=== PATIENT | female | born 1965 | race African-American/Black ===

== ENCOUNTER 2017-01-07 13:51 | Inpatient (IN) | payer MEDICARE, OTHER ==
--- NOTE | ~2017-01-07 | DS ---
Discharge Summary [facility] [address] [place]. [address] NAME: CELESTINE ARREGUIN : 69 STATUS : DIS IN PAT#: [id number] AGE: 51 ADM/REG DATE : 01/07/17 MR#: [id number] REPORT SERV DATE: 01/24/17 DICTATED BY: ELLA SHABAZZ DATE: 01/23/17 REPORT STATUS : Draft TRANSCRIBED BY: NAFISA DATE: 01/23/17 Data Collection from hospitalization DISCHARGE DIAGNOSES: 1. History of right knee incision and drainage/patella tendon revision and repair. 2. End-stage renal disease. 3. Type 2 diabetes mellitus. 4. Hypertension. 5. Peripheral vascular disease. 6. Hyperlipidemia. CONSULTATION: JENNIFER Montoya. Dr. Alfred Moore. PROCEDURES PERFORMED: Right knee irrigation and debridement with excision of synovial cutaneous fistula and revision repair of patellar tendon rupture, 01/07/2017. DISCHARGE MEDICATIONS: Cardizem LA 360 mg every morning, Colace 100 mg twice a day, Pepcid 20 mg at bedtime, ferrous sulfate 300 mg with breakfast and supper, Levemir 35 units subcutaneously every day at bedtime and 45 units subcutaneously every morning, Zyvox 600 mg twice a day, Lopressor 50 mg twice a day, Zocor 40 mg at bedtime, Renvela 3200 mg three times a day with meals, Coumadin as per sliding scale as instructed, Levemir 45 units subcutaneously daily and 35 units subcutaneously at bedtime, Hodges one tablet every four hours as needed, lactulose 20 mg daily as needed for constipation. CONDITION AT DISCHARGE: Stable. DISPOSITION: The patient was discharged to [facility] on a renal diet with activities as instructed. HOSPITAL COURSE: This is a 51-year-old female, who has brittle diabetes and peripheral arterial disease as well as chronic renal disease. She is status post left below-knee amputation, right mid foot amputation, and she fell approximately six weeks prior to this admission, where she sustained an acute closed patellar tendon rupture where she avulsed the patellar tendon off the inferior pole of her patella. She came to a repair and was extended in her knee immobilizer and was doing well until about three weeks prior to this admission when she said she had a fall injuring the right knee. At her postop visit, she had the beata removed and the wound looked good, but she said she began having a small abrasion along the superior aspect of her incision for which she was assessed and sent to the wound care facility on Friday prior to this admission. She underwent debridement and wound care and began having copious amounts of clear yellow fluid drained from the area. I saw her in the office on the day prior to this admission and she was felt to have communication with the joint, but no evidence of gross infection. Treatment options were discussed and it was elected to proceed with surgical intervention. She was admitted to the hospital at this time for further evaluation and treatment. Upon admission, she was taken to the operating room, where she underwent the above-mentioned procedure. She tolerated this well and there were no complications. On postop day 1, dialysis therapy was performed. She did complain of pain, but otherwise was doing well. An Discharge Summary [address] [address] NAME: CELESTINE ARREGUIN : 69 STATUS : DIS IN PAT#: [id number] AGE: 51 ADM/REG DATE : 01/07/17 MR#: [id number] REPORT SERV DATE: 01/24/17 DICTATED BY: ELLA SHABAZZ DATE: 01/23/17 REPORT STATUS : Draft TRANSCRIBED BY: NAFISA DATE: 01/23/[address] Simvastatin was continued. Her diabetes was uncontrolled. Her sliding scale insulin was increased to level 2. Levemir was continued. She was seen by Hetal Alfaro. Creatinine level was 11.90. She does have end-stage renal disease. She was in no acute distress. She had good pain control at this time. She had no nausea or vomiting. On 01/10/2017, she was seen by Dr. Alfred Moore. There had been positive operative cultures for sparse growth of Staph epidermidis. The patient's antibiotic was changed to Zyvox. Ancef was discontinued. She was transfused one unit of packed red blood cells during dialysis. She did complain of pain in the right knee. Discharge planning was performed. On 01/11/2017, she had no new symptoms. She was afebrile. Dr. Moore had recommended seven days of Zyvox. She seemed to be feeling better. Creatinine level was 13. She had mild edema. On the 2nd, she was tolerating the Zyvox. Level 2 sliding scale insulin and Levemir were continued as well as Toprol, Cardizem, and simvastatin. INR level was 1.3. Discharge planning continued. Her pain was controlled. She did have some constipation. Encouraged her to participate with Physical Therapy as tolerated. On 01/14/2017, she had no new complaints. Discharge instructions were given. Due to her improved and stable condition, she was discharged to [facility] with the above-stated instructions. Information collected by: Leticia Maravilla I submit the above information as my discharge summary. TG/MODL Ella Shabazz M.D. / [id number] CC: Ella Shabazz M.D. Jing Ruano M.D. [facility] JENNIFER Montoya
--- NOTE | ~2017-01-07 | OP ---
Record Of Operation [facility] [address] [place]. [address] NAME: CELESTINE ARREGUIN : 69 STATUS : ADM IN PAT#: [id number] AGE: 51 ADM/REG DATE : 01/07/17 MR#: [id number] REPORT SERV DATE: 01/08/17 DICTATED BY: ELLA SHABAZZ DATE: 01/07/17 REPORT STATUS : Draft TRANSCRIBED BY: MODL DATE: 01/07/17 DATE OF PROCEDURE: 01/07/2017 PREOPERATIVE DIAGNOSIS: Left knee synovial cutaneous fistula, status post patellar tendon repair, with a fall 3 weeks ago. POSTOPERATIVE DIAGNOSIS: Left knee synovial cutaneous fistula with failure of lateral aspect of the patellar tendon repair post traumatically. PROCEDURE PERFORMED: Right knee irrigation and debridement with excision of synovial cutaneous fistula and revision repair of patellar tendon rupture. SURGEON: Ella Shabazz M.D. [place]: Ghada Leija. ANESTHESIA: General. HISTORY AND INDICATIONS: Ms. Arreguin is a 51-year-old woman with brittle diabetes, peripheral arterial disease, and chronic renal disease, who is status post left below-knee amputation, right midfoot amputation, and fell approximately 6 weeks ago where she sustained an acute closed patellar tendon rupture where she avulsed the patellar tendon off the inferior pole of her patella. She came to a repair and was extended in her knee immobilizer, doing well until about 3 weeks ago in which she states she had a fall injuring her right knee. Her postop visit had staple removal if the wound looked good, but she says she began having a small abrasion along the superior aspect of her incision for which she was assessed and sent to Wound Care Friday, and with wound care debridement, she began having copious amounts of clear yellow fluid drain from the area. I saw her at the office yesterday afternoon and felt to have communication with the joint, but no evidence of gross infection. She was brought to the operating room for at least irrigation and debridement with excision of her synovial cutaneous fistula and assessment of her patellar tendon repair. She did have an active straight leg raise with just a 10-degree extension lag. PROCEDURE IN DETAIL: The patient was clearly identified, and after obtaining informed consent, was brought to the operating room at [facility] where she was induced under general anesthesia and her right lower extremity prepped and draped in the usual manner. With this concluded, an approximately 8 x 8 mm hole is included in the approach where after with the elevation and exsanguination the tourniquet was elevated to 350 mmHg and successfully tested and incising through her previously utilized incision but also fish- mouthing around the draining wound is noted to communicate with the subcutaneous tissues clearly. This was all carefully performed and the fascial planes were then elevated to expose the patella whereupon it is noted that the fluid is coming from a failure of the medial aspect of the patellar tendon repair as the sutures were pulled and loosened consistent with traumatic injury and knee flexion. Subsequently, the tissues were all carefully irrigated and debrided. There was no evidence of pus, infection, or any infectious gangrenous tissues. Regardless, the area was pulsatile lavaged and the joints [facility] Of [place] [address] [facility] [place]. [address] NAME: CELESTINE ARREGUIN : 69 STATUS : ADM IN PAT#: [id number] AGE: 51 ADM/REG DATE : 01/07/17 MR#: [id number] REPORT SERV DATE: 01/08/17 DICTATED BY: ELLA SHABAZZ DATE: 01/07/17 REPORT STATUS : Draft TRANSCRIBED BY: NAFISA DATE: 01/07/17 inspected. With this concluded, the previously utilized drill holes through the patella are reassessed, Vicryl suture loops were placed for later use, and subsequently the FiberWire was replaced along her patellar tendon, and subsequently with this all being done, more copious irrigation was performed. The sutures were then carefully passed through the patella and the old sutures were all removed from both the patellar tendon as well as through the patellar and superior patellar area. The area then was copiously irrigated. With a concern for infection, tobramycin stimulant beads were then carefully mixed and placed in the depths of the joint whereupon the sutures were then all tied, 1 PDS suture was placed along the retinacular tear medially that wraps more medially in the retinaculum nicely closing the joint and a drain was placed prior to this closure. Subsequently, the knee is held extended, the repair is redone, and the joints then carefully cleansed and then closed in layers. The patient was cleansed and dressed with bulky dressing. A knee immobilizer was applied. The patient was allowed to awaken and was transferred to the recovery in stable condition having tolerated the procedure well. ESTIMATED BLOOD LOSS: 100. FLUIDS: 400. TOURNIQUET TIME: 2 minutes (of note, the patient had tourniquet effect after just a few minutes of the tourniquet being elevated; therefore it was deflated. Hemostasis was obtained which was no different and so the case proceeded). PATHOLOGY: Sent specimen. MICROBIOLOGY: Sent specimen. COMPLICATIONS: None. SPONGE AND NEEDLE COUNTS: Reportedly correct. ANTIBIOTICS: Administered appropriately preoperatively and currently will be discontinued within 23 hours depending upon the Gram stain results and other culture results, and this may continue. WAGNER/LIZL Ella Shabazz M.D. / [id number] CC: Jing Partida M.D.
[~2017-01-07 13:51] MED LIST: 8 HOUR650 MG PO; ANTIBIOTIC; AUG500 PO; BACDS PO; CARDCD120; CARDCD360 PO; CARDIZEM LA180 MG PO; CARDIZEM LA360 MG PO; COREG25 PO; COREG6 PO; COZ50 PO; COZAAR100 MG PO; DAKINS SOLUTION TOP; DILTIAZEM ER90 MG PO; DSS PO; ENDOCET1 TA3 PO; EPOGEN10000 MG/M; EPOGEN10000 MG/M IV; FERRLECIT; FERRLECIT IV; FOLIC PO; GLUCOTRO10 PO; GLUCXL10 PO; GOODY'S EX-STR1 EAC1 PO; INSNOV7030 SC; INSNOVR; LEVEMIR SC; LISINOPRIL40 MG PO; LOP50 PO; MULTIVIT/MIN PO; MYCOSCROI TOP; NORCO1 TA1 PO; NOVOLOG SC; PACERONE400 MG PO; PRIN10 PO; PRO STAT SUGAR FREE PO; RENA-VITE PO; RENAGEL800 PO; RENVELA800 MG PO; RYTHMOL150 MG PO; RYTHMOL300 MG PO; SENSIPAR30 M1 PO; VITAMIN C100 MG PO; VITC500 PO; ZOCOR40 PO; [UNRECOGNIZED DRUG - OTHER] TOP
[2017-01-07 14:45] LABS: HEMATOCRIT 30.4 % (36.0-48.0)
[2017-01-07 15:01] LABS: BUN (BLOOD UREA NITROGEN) 45 MG/DL (6-23); CALCIUM, SERUM 8.7 MG/DL (8.5-10.4); CHLORIDE, SERUM 96 MMOL/L (96-112); CO2 (CARBON DIOXIDE) 28 MMOL/L (24-34); GFR AFRICAN AMERICAN 4 ML/MIN (>=60); GFR NON AFRICAN AMERICAN 4 ML/MIN (>=60); GLUCOSE, SERUM 204 MG/DL (60-99); POTASSIUM, SERUM 4.7 MMOL/L (3.5-5.3); SODIUM, SERUM 138 MMOL/L (135-148)
[2017-01-07 23:05] LABS: INTERNATIONAL NORMAL RATI 1.3 UNITS (-); PROTIME (NOT ORD) 15.7 SEC (12.0-14.5)
[2017-01-08 07:53] LABS: HEMATOCRIT 26.9 % (36.0-48.0)
[2017-01-08 07:57] LABS: INTERNATIONAL NORMAL RATI 1.2 UNITS (-); PROTIME (NOT ORD) 15.2 SEC (12.0-14.5)
[2017-01-08 08:02] LABS: BUN (BLOOD UREA NITROGEN) 53 MG/DL (6-23); CALCIUM, SERUM 8.1 MG/DL (8.5-10.4); CHLORIDE, SERUM 96 MMOL/L (96-112); CO2 (CARBON DIOXIDE) 22 MMOL/L (24-34); GFR AFRICAN AMERICAN 4 ML/MIN (>=60); GFR NON AFRICAN AMERICAN 3 ML/MIN (>=60); GLUCOSE, SERUM 277 MG/DL (60-99); POTASSIUM, SERUM 5.9 MMOL/L (3.5-5.3); SODIUM, SERUM 137 MMOL/L (135-148)
[2017-01-08 18:08] LABS: ALBUMIN 3.6 G/DL (3.5-5.0)
[2017-01-08 18:32] LABS: BASOPHILS 0.4 %; BASOPHILS ABSOLUTE 0.03 10/3/uL (0.0-0.16); EOSINOPHILS 0.9 %; EOSINOPHILS ABSOLUTE 0.07 10/3/uL (0.0-0.53); IMMATURE GRANULOCYTES 0.2 %; IMMATURE GRANULOCYTES ABSOLUTE 0.02 10/3/uL (0.0-0.11); LYMPHOCYTES 15.2 %; LYMPHOCYTES ABSOLUTE 1.24 10/3/uL (0.67-4.30); MEAN CORPUS HGB CONC 31.7 g/dL (32.0-36.0); MEAN CORPUSCULAR HEMOGLOB 28.5 pg (26.0-34.0); MEAN PLATELET VOLUME 11.3 fL (9.2-13.0); MONOCYTES 8.1 %; MONOCYTES ABSOLUTE 0.66 10/3/uL (0.21-1.20); NEUTROPHILS 75.2 %; NEUTROPHILS ABSOLUTE 6.16 10/3/uL (2.02-8.40); RBC DISTRIBUTION WIDTH 19.1 % (12.0-16.0); RED CELL COUNT 3.09 10/6/uL (4.0-5.6)
[2017-01-08 18:35] LABS: WHITE BLOOD CELLS 8.2 10/3/uL (4.5-10.5)
[2017-01-08 18:36] LABS: PLATELET COUNT 261 10/3/uL (150-400)
[2017-01-08 18:37] LABS: MANUAL DIFF NO %
[2017-01-09 10:11] LABS: BASOPHILS 0.2 %; BASOPHILS ABSOLUTE 0.02 10/3/uL (0.0-0.16); EOSINOPHILS 2.6 %; EOSINOPHILS ABSOLUTE 0.22 10/3/uL (0.0-0.53); HEMOGLOBIN 7.8 g/dL (12.0-16.0); IMMATURE GRANULOCYTES 0.1 %; IMMATURE GRANULOCYTES ABSOLUTE 0.01 10/3/uL (0.0-0.11); LYMPHOCYTES 12.7 %; LYMPHOCYTES ABSOLUTE 1.07 10/3/uL (0.67-4.30); MEAN CORPUS HGB CONC 33.2 g/dL (32.0-36.0); MEAN CORPUSCULAR HEMOGLOB 29.5 pg (26.0-34.0); MEAN PLATELET VOLUME 10.2 fL (9.2-13.0); MONOCYTES 7.3 %; MONOCYTES ABSOLUTE 0.62 10/3/uL (0.21-1.20); NEUTROPHILS 77.1 %; PLATELET COUNT 251 10/3/uL (150-400); RBC DISTRIBUTION WIDTH 19.4 % (12.0-16.0); RED CELL COUNT 2.64 10/6/uL (4.0-5.6); WHITE BLOOD CELLS 8.4 10/3/uL (4.5-10.5)
[2017-01-09 10:12] LABS: HEMATOCRIT 23.5 % (36.0-48.0); MANUAL DIFF NO %
[2017-01-09 10:22] LABS: INTERNATIONAL NORMAL RATI 1.3 UNITS (-); PROTIME (NOT ORD) 16.5 SEC (12.0-14.5)
[2017-01-09 10:26] LABS: ALBUMIN 3.3 G/DL (3.5-5.0); CALCIUM, SERUM 8.6 MG/DL (8.5-10.4); CHLORIDE, SERUM 97 MMOL/L (96-112); CO2 (CARBON DIOXIDE) 24 MMOL/L (24-34); SODIUM, SERUM 138 MMOL/L (135-148)
[2017-01-09 10:27] LABS: BUN (BLOOD UREA NITROGEN) 43 MG/DL (6-23); GFR AFRICAN AMERICAN 5 ML/MIN (>=60); GFR NON AFRICAN AMERICAN 4 ML/MIN (>=60); GLUCOSE, SERUM 137 MG/DL (60-99); PHOSPHORUS, SERUM 5.6 MG/DL (2.5-4.5); POTASSIUM, SERUM 4.4 MMOL/L (3.5-5.3)
[2017-01-10 13:58] LABS: BASOPHILS 0.1 %; BASOPHILS ABSOLUTE 0.01 10/3/uL (0.0-0.16); EOSINOPHILS 4.1 %; EOSINOPHILS ABSOLUTE 0.37 10/3/uL (0.0-0.53); HEMATOCRIT 23.1 % (36.0-48.0); HEMOGLOBIN 7.7 g/dL (12.0-16.0); IMMATURE GRANULOCYTES 0.1 %; IMMATURE GRANULOCYTES ABSOLUTE 0.01 10/3/uL (0.0-0.11); LYMPHOCYTES 24.9 %; LYMPHOCYTES ABSOLUTE 2.25 10/3/uL (0.67-4.30); MANUAL DIFF NO %; MEAN CORPUS HGB CONC 33.3 g/dL (32.0-36.0); MEAN CORPUSCULAR HEMOGLOB 29.3 pg (26.0-34.0); MEAN CORPUSCULAR VOLUME 87.8 fL (80-100); MEAN PLATELET VOLUME 9.7 fL (9.2-13.0); MONOCYTES 7.6 %; MONOCYTES ABSOLUTE 0.69 10/3/uL (0.21-1.20); NEUTROPHILS 63.2 %; NEUTROPHILS ABSOLUTE 5.71 10/3/uL (2.02-8.40); PLATELET COUNT 278 10/3/uL (150-400); RED CELL COUNT 2.63 10/6/uL (4.0-5.6)
[2017-01-10 14:20] LABS: ALBUMIN 3.1 G/DL (3.5-5.0); CALCIUM, SERUM 8.6 MG/DL (8.5-10.4); CHLORIDE, SERUM 98 MMOL/L (96-112); CO2 (CARBON DIOXIDE) 25 MMOL/L (24-34); PHOSPHORUS, SERUM 6.3 MG/DL (2.5-4.5); POTASSIUM, SERUM 4.3 MMOL/L (3.5-5.3); SODIUM, SERUM 140 MMOL/L (135-148)
[2017-01-10 14:21] LABS: BUN (BLOOD UREA NITROGEN) 60 MG/DL (6-23); GFR AFRICAN AMERICAN 3 ML/MIN (>=60); GFR NON AFRICAN AMERICAN 3 ML/MIN (>=60); GLUCOSE, SERUM 106 MG/DL (60-99)
[2017-01-10 18:26] LABS: INTERNATIONAL NORMAL RATI 1.3 UNITS (-)
[2017-01-11 06:41] LABS: INTERNATIONAL NORMAL RATI 1.3 UNITS (-)
[2017-01-12 06:09] LABS: INTERNATIONAL NORMAL RATI 1.3 UNITS (-); PROTIME (NOT ORD) 16.3 SEC (12.0-14.5)
[2017-01-12 06:22] LABS: ALBUMIN 3.2 G/DL (3.5-5.0); CALCIUM, SERUM 9.4 MG/DL (8.5-10.4); CHLORIDE, SERUM 101 MMOL/L (96-112); CO2 (CARBON DIOXIDE) 25 MMOL/L (24-34); PHOSPHORUS, SERUM 6.3 MG/DL (2.5-4.5); POTASSIUM, SERUM 4.6 MMOL/L (3.5-5.3); SODIUM, SERUM 140 MMOL/L (135-148)
[2017-01-12 06:23] LABS: BUN (BLOOD UREA NITROGEN) 50 MG/DL (6-23); GFR AFRICAN AMERICAN 4 ML/MIN (>=60); GFR NON AFRICAN AMERICAN 3 ML/MIN (>=60); GLUCOSE, SERUM 67 MG/DL (60-99)
[2017-01-13 09:31] LABS: BASOPHILS 0.4 %; BASOPHILS ABSOLUTE 0.02 10/3/uL (0.0-0.16); EOSINOPHILS 5.3 %; HEMATOCRIT 25.4 % (36.0-48.0); HEMOGLOBIN 8.5 g/dL (12.0-16.0); IMMATURE GRANULOCYTES 0.2 %; IMMATURE GRANULOCYTES ABSOLUTE 0.01 10/3/uL (0.0-0.11); LYMPHOCYTES 30.4 %; LYMPHOCYTES ABSOLUTE 1.71 10/3/uL (0.67-4.30); MANUAL DIFF NO %; MEAN CORPUS HGB CONC 33.5 g/dL (32.0-36.0); MEAN CORPUSCULAR HEMOGLOB 29.9 pg (26.0-34.0); MEAN CORPUSCULAR VOLUME 89.4 fL (80-100); MEAN PLATELET VOLUME 10.4 fL (9.2-13.0); MONOCYTES ABSOLUTE 0.34 10/3/uL (0.21-1.20); NEUTROPHILS 57.7 %; NEUTROPHILS ABSOLUTE 3.25 10/3/uL (2.02-8.40); PLATELET COUNT 312 10/3/uL (150-400); RBC DISTRIBUTION WIDTH 17.3 % (12.0-16.0); RED CELL COUNT 2.84 10/6/uL (4.0-5.6); WHITE BLOOD CELLS 5.6 10/3/uL (4.5-10.5)
[2017-01-13 09:40] LABS: INTERNATIONAL NORMAL RATI 1.5 UNITS (-); PROTIME (NOT ORD) 18.4 SEC (12.0-14.5)
[2017-01-13 09:41] LABS: ALBUMIN 2.9 G/DL (3.5-5.0); CALCIUM, SERUM 8.8 MG/DL (8.5-10.4); CHLORIDE, SERUM 98 MMOL/L (96-112); CO2 (CARBON DIOXIDE) 23 MMOL/L (24-34); PHOSPHORUS, SERUM 6.5 MG/DL (2.5-4.5); POTASSIUM, SERUM 4.8 MMOL/L (3.5-5.3); SODIUM, SERUM 137 MMOL/L (135-148)
[2017-01-13 09:42] LABS: BUN (BLOOD UREA NITROGEN) 58 MG/DL (6-23); GFR AFRICAN AMERICAN 3 ML/MIN (>=60); GFR NON AFRICAN AMERICAN 3 ML/MIN (>=60); GLUCOSE, SERUM 123 MG/DL (60-99)
[2017-01-14 08:43] LABS: INTERNATIONAL NORMAL RATI 1.5 UNITS (-); PROTIME (NOT ORD) 18.2 SEC (12.0-14.5)
[2017-05-09] MEDS ORDERED: PEP20 PO (18:03)
[2017-05-09] MEDS ORDERED: CARDCD360 PO (18:03)
[2017-05-09] MEDS ORDERED: NOVOLOG SC (18:04)
[2017-05-09] MEDS ORDERED: LOP50 PO (18:05)
[2017-05-09] MEDS ORDERED: REG5 PO (18:05)
[2017-05-09] MEDS ORDERED: ZOFRAN4 PO (18:06)
[2017-05-09] MEDS ORDERED: ZOCOR40 PO (18:07)
[2017-05-09] MEDS ORDERED: RENAGEL800 PO (18:07)
[2017-05-09] MEDS ORDERED: NORCO1 TA2 PO (18:08)
[2017-05-09] MEDS ORDERED: LANTUS SC (18:08)
== END 2017-01-14 17:46 | DRG 907 ==
LOC: SDC 13:51 → 4SO 20:44
PROVIDERS: Orthopaedic Surgery; Registered Nurse
DX: S76.191A Other specified injury of right quadriceps muscle, fascia and tendon, initial encounter (principal); N18.6 End stage renal disease; I13.2 Hypertensive heart and chronic kidney disease with heart failure and with stage 5 chronic kidney disease, or end stage renal disease; W19.XXXA Unspecified fall, initial encounter; E11.22 Type 2 diabetes mellitus with diabetic chronic kidney disease; D62 Acute posthemorrhagic anemia; M65.861 Other synovitis and tenosynovitis, right lower leg; I50.9 Heart failure, unspecified; Z99.2 Dependence on renal dialysis; Z89.512 Acquired absence of left leg below knee; Z89.431 Acquired absence of right foot; S86.812A Strain of other muscle(s) and tendon(s) at lower leg level, left leg, initial encounter; S83.8X1A Sprain of other specified parts of right knee, initial encounter; Z91.81 History of falling; E78.5 Hyperlipidemia, unspecified; E11.9 Type 2 diabetes mellitus without complications; I73.89 Other specified peripheral vascular diseases; K21.9 Gastro-esophageal reflux disease without esophagitis; S89.81XA Other specified injuries of right lower leg, initial encounter; D63.1 Anemia in chronic kidney disease; B95.7 Other staphylococcus as the cause of diseases classified elsewhere
CPT/HCPCS: 36415; 73560-RT; 74000; 80048; 80069; 82962; 83735; 85014; 85018; 85025; 85610; 86850; 86900; 86901; 86920; 87015; 87070; 87075; 87077; 87102; 87116; 87186; 87205; 93005; 97116-GP; 97161-GP; 97164-GP; 97166-GO; 97530-GP; 97535-GO; A9270-GY; C1713; G0257; G8978-CL-GP; G8979-CK-GP; G8987-CK-GO; G8988-CJ-GO; J0690; J1170; J2250; J2370; J2405; J2550; J3010; J3260; P9016; P9047

== ENCOUNTER 2017-01-29 22:14 | Observation (INO) | payer MEDICARE, OTHER ==
--- NOTE | ~2017-01-29 | EGD ---
EGD REPORT [facility] [address] [place]. [address] NAME: CELESTINE ARREGUIN : 69 STATUS : ADM Hetal PAT#: [id number] AGE: 51 ADM/REG DATE : 01/30/17 MR#: [id number] REPORT SERV DATE: 01/31/17 DICTATED BY: STONE YEUNG DATE: 01/31/17 REPORT STATUS : Draft TRANSCRIBED BY: [facility] DATE: 01/31/17 Endoscopy Center Patient Name: Celestine Arreguin Date of : 1965 Attending MD: STONE YEUNG MD Procedure Date No Time: 01/31/2017 Procedure: Upper GI endoscopy Indications: Hematemesis Referring MD: SAM DORMAN Medicines: Monitored Anesthesia Care Complications: No immediate complications. Estimated blood loss: None. Procedure: Pre-Anesthesia Assessment: - ASA Grade Assessment: IV - A patient with severe systemic disease that is a constant threat to life. After obtaining informed consent, the endoscope was passed under direct vision. Throughout the procedure, the patient's blood pressure, pulse, and oxygen saturations were monitored continuously. The GIF [id number] was introduced through the mouth, and advanced to the second part of duodenum. The upper GI endoscopy was accomplished without difficulty. The patient tolerated the procedure well. Findings: A single small erosion was found at the gastroesophageal junction that appeared to be a healing Gloria Hussein tear. No gross lesions were noted in the entire examined stomach. No gross lesions were noted in the entire examined duodenum. Impression: - Small Gloria Hussein tear at the gastroesophageal junction. - No gross lesions in the stomach. - No gross lesions in duodenum. - No suggestion of bleeding was seen on this examination. Rebleeding is unlikely. Recommendation: - Soft diet. - Use Protonix (pantoprazole) 40 mg PO daily for 4 weeks. - OK to DC to home Procedure Code(s): --- Professional --- 33624, Esophagogastroduodenoscopy, flexible, transoral; diagnostic, including collection of specimen(s) by brushing or washing, when performed (separate procedure) EGD REPORT [address] [place]. [address] NAME: CELESTINE ARREGUIN : [birth year] STATUS : ADM Hetal PAT#: [id number] AGE: 51 ADM/REG DATE : 01/30/17 MR#: [id number] REPORT SERV DATE: 01/31/17 DICTATED BY: STONE YEUNG DATE: 01/31/17 REPORT STATUS : Draft TRANSCRIBED BY: RecordSled DATE: 01/31/17 Diagnosis Code(s): --- Professional --- K22.10, Ulcer of esophagus without bleeding K92.2, Gastrointestinal hemorrhage, unspecified K92.0, Hematemesis CPT copyright 2013 [employer]. All rights reserved. The codes documented in this report are preliminary and upon mechanic insulator review may be revised to meet current compliance requirements. Stone Yeung MD STONE YEUNG MD 01/31/2017 8:13 AM This report has been signed electronically. Number of Addenda: 0 Note Initiated On: 01/31/2017 7:[address] [place] [address] [place] [address]
--- NOTE | ~2017-01-29 | CN ---
Consultation Report [facility] [address] [place]. [address] NAME: CELESTINE ARREGUIN : [birth year] STATUS : ADM Hetal PAT#: [id number] AGE: 51 ADM/REG DATE : 01/30/17 MR#: [id number] REPORT SERV DATE: 01/30/17 DICTATED BY: PASCUAL OWUSU DATE: 01/30/17 REPORT STATUS : Draft TRANSCRIBED BY: MODL DATE: 01/30/17 GI CONSULTATION DATE OF CONSULTATION: 01/30/2017 REASON FOR CONSULTATION: Evaluation and management of nausea, vomiting, and hematemesis. HISTORY OF PRESENT ILLNESS: Ms. Arreguin is a pleasant 51-year-old, female patient, known to Dr. Caicedo in the outpatient setting who presented to [facility] on 01/30/2017 with a chief complaint of nausea, vomiting, hematemesis. She gives me a history of symptom onset yesterday after her morning dialysis treatment. She states that she was extremely nauseated. She returned home and had multiple episodes of emesis. She states that she vomited up bright red blood as well as coffee-ground emesis. She states that she does take Goody powders intermittently and had taken one to two Goody powders over the last week secondary to right knee pain. She has a history of recently being at [facility] for rehab secondary to right knee I and D, patella tendon revision and repair done by Dr. Shabazz. She states while she was over there, she had significant heavy menstrual cycles as well as seeing some minimal bright red blood per rectum. She has had EGD and colonoscopy done by Dr. Caicedo, the last in November of 2014. Colonoscopy was done for iron deficiency anemia, findings of polyp in the transverse colon, and normal ilium. Upper endoscopy was done and had findings of a normal esophagus. She had some erythema in the stomach with biopsies being taken, hiatal hernia, normal mucosa in the duodenal bulb, and normal second part of the duodenum. She had a notable hemoglobin on 01/20/2017 of 8.4, presently 6.8. She did tell me that she did receive a blood transfusion while being at [facility] secondary to her nausea, vomiting, and hematemesis. GI was consulted for further recommendations. I have discussed with the patient as well as the patient's family who is present at the bedside. We will let her have some clear liquids this afternoon as well as make her n.p.o. after midnight, then pursue upper endoscopy tomorrow with Dr. Redding. I discussed risks, benefits, alternatives, and complications with her to include, but not limited to risk of bleeding, perforation, infection, reaction to medication, as well as cardiac and pulmonary side effects. She is agreeable to proceed. PAST MEDICAL HISTORY: Positive for end-stage renal disease on hemodialysis, type 2 diabetes, hyperlipidemia, ventricular tachycardia with ablation, diabetic neuropathy, peripheral vascular disease, right transmetatarsal amputation, iron deficiency anemia, hypertension, history of left sxdge-tqs-nqew amputation. SOCIAL HISTORY: Single, lives alone. Disabled, denies alcohol, tobacco, or illicits. FAMILY HISTORY: Noncontributory from a GI standpoint. ALLERGIES: TO VANCOMYCIN. MEDICATIONS: Her home medication consist of Cardizem, Pepcid, ferrous sulfate, [place], Consultation Report [address] [address] NAME: CELESTINE ARREGUIN : [birth year] STATUS : ADM Hetal PAT#: [id number] AGE: 51 ADM/REG DATE : 01/30/17 MR#: [id number] REPORT SERV DATE: 01/30/17 DICTATED BY: PASCUAL OWUSU DATE: 01/30/17 REPORT STATUS : Draft TRANSCRIBED BY: NAFISA DATE: 01/30/17 Ria Polanco, Jacobo, Jamil, Renvela, and Zocor. REVIEW OF SYSTEMS: A 10-point review of systems has been obtained with pertinent positives being addressed in the history of present illness. PERTINENT LABORATORY DATA: Sodium is 136, potassium 3.9, BUN is 41, creatinine 10.8, white count 7.5, hemoglobin 6.8, hematocrit 18.1. CT without contrast is negative. She had elevated lipase at 1263, total bilirubin was 0.9, alkaline phosphatase 194, ALT is 52, her AST was 318. PHYSICAL EXAMINATION: VITAL SIGNS: Temperature is 96.6, pulse of 70, respirations 18, blood pressure is 167/82. NEUROLOGIC: Reveals an alert, female, resting in bed with no focal deficits. GENERAL: Cooperative, no apparent distress. Awake, alert, oriented x3. HEAD, EARS, EYES, NOSE, AND THROAT: Anicteric. Pupils are equal, round, and reactive to light accommodation. Normocephalic and atraumatic. NECK: No JVD. No palpable nodes. Supple. LUNGS: Decreased throughout. Normal respiratory effort exhibited. CARDIOVASCULAR SYSTEM: Regular rate and rhythm. ABDOMEN: Soft with mild tenderness diffusely. No rebound organomegaly or guarding elicited on exam. EXTREMITIES: Right knee beata, left kdxyn-bqn-vyea amputation. SKIN: Warm, dry, and intact. ASSESSMENT AND PLAN: 1. Nausea, vomiting, and hematemesis. 2. Abdominal pain. 3. Elevated lipase, LFTs. 4. End-stage renal disease, on dialysis. 5. Type 2 diabetes. PLAN: 1. Clear liquid diet, n.p.o. after midnight. 2. Reglan IV. 3. EGD in the morning. 4. Transfuse per Renal. 5. We will follow up endoscopy and then make further recommendations. CHANA/NAFISA Consultation Report [address] [address] NAME: CELESTINE ARREGUIN : [birth year] STATUS : ADM Hetal PAT#: [id number] AGE: 51 ADM/REG DATE : 01/30/17 MR#: [id number] REPORT SERV DATE: 01/30/17 DICTATED BY: PASCUAL OWUSU DATE: 01/30/17 REPORT STATUS : Draft TRANSCRIBED BY: NAFISA DATE: 01/30/17 JENNIFER Thomas / [id number] CC: Jing Medina M.D.
--- NOTE | ~2017-01-29 | HP ---
History And Physical [facility] [address] [place]. [address] NAME: CELESTINE ARREGUIN : [birth year] STATUS : ADM Hetal PAT#: [id number] AGE: 51 ADM/REG DATE : 01/30/17 MR#: [id number] REPORT SERV DATE: 01/30/17 DICTATED BY: DATE: REPORT STATUS : Draft TRANSCRIBED BY: MODL DATE: 01/30/17 DATE OF ADMISSION: 01/30/2017 CHIEF COMPLAINT: Nausea, vomiting, hematemesis. HISTORY OF PRESENT ILLNESS: Ms Arreguin is a very pleasant 51-year-old black female with a history of end-stage renal disease, most recently has been hospitalized with knee issues and underwent a knee surgery for left knee synovial cutaneous fistula and status post patellar tendon repair. Just released from [facility] within the last couple of weeks. She states that she has had ongoing issues with bright red blood per rectum that were felt to be contributed to hemorrhoids as she has gotten visible hemorrhoids. She also has been having heavy menses and had a scheduled appointment with [facility] today. She does have a history of peptic ulcer disease in the past. Went to her dialysis per her usual routine yesterday and then afterwards at 10:30 a.m. developed nausea, vomiting, burning in her chest, reflux type symptoms, hiccups then bright red blood in her vomit, followed by dark blood, and therefore, she presented to the emergency department. In the emergency department, she was found to have a hemoglobin of 6.8, her last hemoglobins had been around 9. She denies any shortness of breath or chest pain, just a burning feeling sensation. No fevers or chills, cough, congestion, or shortness of breath. Given all of this, she is being admitted for further evaluation and treatment. 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 SOCIAL HISTORY: She lives alone. No tobacco, alcohol, or illicit drug use. ALLERGIES: VANCOMYCIN. FAMILY MEDICAL HISTORY: Positive for father with end-stage renal disease. HOME MEDICATIONS: She does admit to using some occasional Goody's Powders. She is on diltiazem, famotidine, ferrous sulfate, [place], Levemir, losartan, Reglan, metoprolol, Renvela, simvastatin. REVIEW OF SYSTEMS: 12-point review of systems obtained and negative with the exception that in HPI. PHYSICAL EXAMINATION: VITAL SIGNS: Temp 97.1, blood pressure 183/84, pulse 94, respiratory rate 16, and O2 saturation is 97%. GENERAL: This is a pleasant, cooperative, black female. She is awake, alert, and oriented x3. No acute distress. Answers questions appropriately. HEENT: Normocephalic and atraumatic. Conjunctivae clear. Sclerae anicteric. Oral mucosa is dry. History And Physical [address] [address] NAME: CELESTINE ARREGUIN : [birth year] STATUS : ADM Hetal PAT#: [id number] AGE: 51 ADM/REG DATE : 01/30/17 MR#: [id number] REPORT SERV DATE: 01/30/17 DICTATED BY: DATE: REPORT STATUS : Draft TRANSCRIBED BY: MODL DATE: 01/30/17 NECK: I do not see neck vein distention. RESPIRATIONS: Even and unlabored. Breath sounds are clear to auscultation. HEART: Rate is regular. I did not hear any murmur, rub, or gallop. ABDOMEN: Soft with positive bowel sounds. She has significant tenderness to the left abdomen and no epigastric tenderness and no CVA tenderness. BACK: Within normal limits. EXTREMITIES: she has gotten a left BKA and into her right knee. She still has beata intact and incision without signs of infection. NEURO: No focal deficits. Mood and affect, she is pleasant and appropriate. PERTINENT LABS AND X-RAYS: She had a CT of the abdomen which was negative. Her procalcitonin 5.72. Sodium 136, potassium 3.9, chloride 97, CO2 of 28, BUN of 41, creatinine of 10, and albumin of 3.2. Lipase of 12,268. AST of 318, ALT of 52, bilirubin 0.9. WBCs 7.5, H and H 6 and 19, platelets 270,000. Lactate 1. IMPRESSION: 1. Nausea and vomiting. 2. Hematemesis. 3. Acute blood loss anemia. 4. Bright red blood per rectum. 5. Possible pancreatitis, but most likely lipase elevation secondary to nausea and vomiting. 6. Hemorrhoids. 7. Reflux. 8. Peptic ulcer disease. 9. End-stage renal disease. 10.Hypertension. 11.History of supraventricular tachycardia. PLAN: Admit. She is on a Protonix drip. GI consult. I have already discussed with them. They will plan endoscopy in the morning. Transfuse 1 unit tonight and 1 unit tomorrow on dialysis of packed red blood cells unless more is needed and if she starts bleeding again. Antiemetics. Pain medications as needed. Usual medicines for heart rate control. Further orders and recommendations pending clinical course. RADHA/MODL JENNIFER Montoya / [id number] CC: Óscar Dasilva M.D. Nathan Nunez M.D.
[2017-01-30 01:32] LABS: BASOPHILS 0.3 %; BASOPHILS ABSOLUTE 0.02 10/3/uL (0.0-0.16); EOSINOPHILS 1.3 %; ER CBC TAT 0 Hrs 00 Mins; HEMATOCRIT 18.1 % (36.0-48.0); HEMOGLOBIN 6.8 g/dL (12.0-16.0); IMMATURE GRANULOCYTES 0.3 %; IMMATURE GRANULOCYTES ABSOLUTE 0.02 10/3/uL (0.0-0.11); LYMPHOCYTES 10.8 %; LYMPHOCYTES ABSOLUTE 0.81 10/3/uL (0.67-4.30); MEAN CORPUS HGB CONC 37.6 g/dL (32.0-36.0); MEAN CORPUSCULAR HEMOGLOB 32.1 pg (26.0-34.0); MEAN CORPUSCULAR VOLUME 85.4 fL (80-100); MEAN PLATELET VOLUME 10.5 fL (9.2-13.0); MONOCYTES 7.2 %; MONOCYTES ABSOLUTE 0.54 10/3/uL (0.21-1.20); NEUTROPHILS 80.1 %; PLATELET COUNT 270 10/3/uL (150-400); RBC DISTRIBUTION WIDTH 17.5 % (12.0-16.0); RED CELL COUNT 2.12 10/6/uL (4.0-5.6); WHITE BLOOD CELLS 7.5 10/3/uL (4.5-10.5)
[2017-01-30 01:34] LABS: MANUAL DIFF NO %
[2017-01-30 01:39] LABS: A/G RATIO 0.6 (0.7-1.9); ALBUMIN 3.2 G/DL (3.5-5.0); CALCIUM, SERUM 7.9 MG/DL (8.5-10.4); CHLORIDE, SERUM 97 MMOL/L (96-112); CO2 (CARBON DIOXIDE) 28 MMOL/L (24-34); GLOBULIN 5.1 G/DL (2.5-4.1); SODIUM, SERUM 136 MMOL/L (135-148); TOTAL PROTEIN 8.3 G/DL (6.0-8.5)
[2017-01-30 01:51] LABS: ALKALINE PHOSPHATASE 194 U/L (45-117); BUN (BLOOD UREA NITROGEN) 41 MG/DL (6-23); DIRECT BILIRUBIN < 0.1 MG/DL (0.0-0.4); GFR AFRICAN AMERICAN 4 ML/MIN (>=60); GFR NON AFRICAN AMERICAN 4 ML/MIN (>=60); GLUCOSE, SERUM 410 MG/DL (60-99); INDIRECT BILIRUBIN(NOT ORDER) 0.8 MG/DL (0.1-0.9); POTASSIUM, SERUM 3.9 MMOL/L (3.5-5.3); TOTAL BILIRUBIN 0.9 MG/DL (0-1.2)
[2017-01-30 01:52] LABS: SGOT(AST) 318 U/L (5-40); SGPT(ALT) 52 U/L (5-65)
[2017-01-30 02:03] LABS: PROCALCITONIN 5.72 ng/mL (<0.5)
[2017-01-30] MEDS ORDERED: NORCO1 TA1 PO (02:58)
[2017-01-30] MEDS ORDERED: RENVELA800 MG PO (02:58)
[2017-01-30] MEDS ORDERED: REG5 PO (02:59)
[2017-01-30] MEDS ORDERED: NORCO1 TAB PO (02:59)
[2017-01-30] MEDS ORDERED: LOP50 PO (02:59)
[2017-01-30] MEDS ORDERED: PEP20 PO (03:00)
[2017-01-30] MEDS ORDERED: ZOCOR40 PO (03:00)
[2017-01-30] MEDS ORDERED: FERROUS SULF325 M1 PO (03:00)
[2017-01-30] MEDS ORDERED: CARDCD360 PO (03:00)
[2017-01-30] MEDS ORDERED: COZAAR100 MG PO (03:00)
[2017-01-30] MEDS ORDERED: LEVEMFLXPN SC (03:01)
[2017-01-30 18:05] LABS: BASOPHILS 0.6 %; BASOPHILS ABSOLUTE 0.05 10/3/uL (0.0-0.16); EOSINOPHILS ABSOLUTE 0.25 10/3/uL (0.0-0.53); IMMATURE GRANULOCYTES 0.4 %; IMMATURE GRANULOCYTES ABSOLUTE 0.03 10/3/uL (0.0-0.11); LYMPHOCYTES 20.8 %; LYMPHOCYTES ABSOLUTE 1.76 10/3/uL (0.67-4.30); MEAN CORPUSCULAR VOLUME 87.4 fL (80-100); MEAN PLATELET VOLUME 10.3 fL (9.2-13.0); MONOCYTES 6.4 %; MONOCYTES ABSOLUTE 0.54 10/3/uL (0.21-1.20); NEUTROPHILS 68.8 %; NEUTROPHILS ABSOLUTE 5.82 10/3/uL (2.02-8.40); PLATELET COUNT 273 10/3/uL (150-400); RBC DISTRIBUTION WIDTH 18.1 % (12.0-16.0); RED CELL COUNT 2.23 10/6/uL (4.0-5.6); WHITE BLOOD CELLS 8.5 10/3/uL (4.5-10.5)
[2017-01-30 18:06] LABS: HEMATOCRIT 19.5 % (36.0-48.0); HEMOGLOBIN 6.7 g/dL (12.0-16.0); MANUAL DIFF NO %; MEAN CORPUS HGB CONC 34.4 g/dL (32.0-36.0)
[2017-01-30 18:53] LABS: ALBUMIN 3.1 G/DL (3.5-5.0); TOTAL BILIRUBIN 1.3 MG/DL (0-1.2)
[2017-01-30 18:55] LABS: DIRECT BILIRUBIN 0.2 MG/DL (0.0-0.4); INDIRECT BILIRUBIN(NOT ORDER) 1.1 MG/DL (0.1-0.9)
[2017-01-31 06:09] LABS: BASOPHILS 0.4 %; BASOPHILS ABSOLUTE 0.03 10/3/uL (0.0-0.16); EOSINOPHILS 5.3 %; HEMOGLOBIN 7.8 g/dL (12.0-16.0); IMMATURE GRANULOCYTES 0.4 %; IMMATURE GRANULOCYTES ABSOLUTE 0.03 10/3/uL (0.0-0.11); LYMPHOCYTES 26.8 %; LYMPHOCYTES ABSOLUTE 2.01 10/3/uL (0.67-4.30); MEAN CORPUS HGB CONC 33.5 g/dL (32.0-36.0); MEAN CORPUSCULAR HEMOGLOB 28.6 pg (26.0-34.0); MEAN CORPUSCULAR VOLUME 85.3 fL (80-100); MEAN PLATELET VOLUME 10.5 fL (9.2-13.0); MONOCYTES 7.1 %; MONOCYTES ABSOLUTE 0.53 10/3/uL (0.21-1.20); NEUTROPHILS ABSOLUTE 4.51 10/3/uL (2.02-8.40); PLATELET COUNT 256 10/3/uL (150-400); RBC DISTRIBUTION WIDTH 18.5 % (12.0-16.0); WHITE BLOOD CELLS 7.5 10/3/uL (4.5-10.5)
[2017-01-31 06:11] LABS: HEMATOCRIT 23.3 % (36.0-48.0); MANUAL DIFF NO %; RED CELL COUNT 2.73 10/6/uL (4.0-5.6)
[2017-01-31 06:19] LABS: CHLORIDE, SERUM 101 MMOL/L (96-112); CO2 (CARBON DIOXIDE) 24 MMOL/L (24-34); SGPT(ALT) 43 U/L (5-65); SODIUM, SERUM 139 MMOL/L (135-148); TOTAL BILIRUBIN 1.3 MG/DL (0-1.2); TOTAL PROTEIN 7.6 G/DL (6.0-8.5)
[2017-01-31 06:20] LABS: BUN (BLOOD UREA NITROGEN) 63 MG/DL (6-23); GFR AFRICAN AMERICAN 3 ML/MIN (>=60); GFR NON AFRICAN AMERICAN 3 ML/MIN (>=60)
[2017-01-31 06:21] LABS: ALKALINE PHOSPHATASE 194 U/L (45-117); CALCIUM, SERUM 9.7 MG/DL (8.5-10.4); DIRECT BILIRUBIN 0.2 MG/DL (0.0-0.4); GLUCOSE, SERUM 170 MG/DL (60-99); INDIRECT BILIRUBIN(NOT ORDER) 1.1 MG/DL (0.1-0.9); SGOT(AST) 184 U/L (5-40)
[2017-01-31] MEDS ORDERED: PROTONIX PO (16:16)
[2017-05-09] MEDS ORDERED: CARDCD360 PO (18:03)
[2017-05-09] MEDS ORDERED: PEP20 PO (18:03)
[2017-05-09] MEDS ORDERED: NOVOLOG SC (18:04)
[2017-05-09] MEDS ORDERED: LOP50 PO (18:05)
[2017-05-09] MEDS ORDERED: REG5 PO (18:05)
[2017-05-09] MEDS ORDERED: ZOFRAN4 PO (18:06)
[2017-05-09] MEDS ORDERED: ZOCOR40 PO (18:07)
[2017-05-09] MEDS ORDERED: RENAGEL800 PO (18:07)
[2017-05-09] MEDS ORDERED: LANTUS SC (18:08)
[2017-05-09] MEDS ORDERED: NORCO1 TA2 PO (18:08)
== END 2017-01-31 17:51 | disposition home or self-care (01) ==
LOC: ER 22:14 → 7NO 01-30 02:55
PROVIDERS: Internal Medicine Gastroenterology; Nurse Practitioner; Nurse Practitioner Family
PROC: 0DJ08ZZ Inspection of Upper Intestinal Tract, Via Natural or Artificial Opening Endoscopic (ICD-10-PCS; principal; 2017-01-31 07:51)
DX: K92.2 Gastrointestinal hemorrhage, unspecified (principal); K22.10 Ulcer of esophagus without bleeding; D62 Acute posthemorrhagic anemia; K92.0 Hematemesis; K21.9 Gastro-esophageal reflux disease without esophagitis; K27.9 Peptic ulcer, site unspecified, unspecified as acute or chronic, without hemorrhage or perforation; E78.5 Hyperlipidemia, unspecified; N18.6 End stage renal disease; E11.9 Type 2 diabetes mellitus without complications; I12.0 Hypertensive chronic kidney disease with stage 5 chronic kidney disease or end stage renal disease; Z90.49 Acquired absence of other specified parts of digestive tract; Z88.1 Allergy status to other antibiotic agents
CPT/HCPCS: 36415; 36430; 74176; 80048; 80053; 80076; 81001; 82248; 82962; 83605; 83690; 84145; 84703; 85025; 86850; 86900; 86901; 86920; 87040; 93005; 96374; 96375; 96376; 99291; A9270-GY; C9113; G0257; G0378; J0360; J1980; J2405; J2765; P9016

== ENCOUNTER 2017-02-09 04:36 | Emergency (ER) | payer MEDICARE, OTHER ==
[2017-02-09 02:36] LABS: BASOPHILS 0.3 %; BASOPHILS ABSOLUTE 0.02 10/3/uL (0.0-0.16); EOSINOPHILS 3.4 %; EOSINOPHILS ABSOLUTE 0.25 10/3/uL (0.0-0.53); ER CBC TAT 0 Hrs 05 Mins; IMMATURE GRANULOCYTES 0.1 %; IMMATURE GRANULOCYTES ABSOLUTE 0.01 10/3/uL (0.0-0.11); LYMPHOCYTES 23.4 %; LYMPHOCYTES ABSOLUTE 1.72 10/3/uL (0.67-4.30); MEAN CORPUS HGB CONC 33.5 g/dL (32.0-36.0); MEAN CORPUSCULAR HEMOGLOB 29.5 pg (26.0-34.0); MEAN PLATELET VOLUME 11.4 fL (9.2-13.0); MONOCYTES 6.4 %; MONOCYTES ABSOLUTE 0.47 10/3/uL (0.21-1.20); NEUTROPHILS 66.4 %; NEUTROPHILS ABSOLUTE 4.89 10/3/uL (2.02-8.40); PLATELET COUNT 292 10/3/uL (150-400); RBC DISTRIBUTION WIDTH 17.3 % (12.0-16.0); RED CELL COUNT 3.22 10/6/uL (4.0-5.6); WHITE BLOOD CELLS 7.4 10/3/uL (4.5-10.5)
[2017-02-09 02:39] LABS: HEMATOCRIT 28.4 % (36.0-48.0); HEMOGLOBIN 9.5 g/dL (12.0-16.0); MANUAL DIFF NO %; MEAN CORPUSCULAR VOLUME 88.2 fL (80-100)
[2017-02-09 02:44] LABS: INTERNATIONAL NORMAL RATI 1.1 UNITS (-); PARTIAL THROMBO TIME 24.4 SEC (22.5-37.2); PROTIME (NOT ORD) 13.8 SEC (12.0-14.5)
[2017-02-09 02:59] LABS: BUN (BLOOD UREA NITROGEN) 65 MG/DL (6-23); CHEST PAIN PROFILE TAT 0 Hrs 28 Mins; CHLORIDE, SERUM 96 MMOL/L (96-112); CO2 (CARBON DIOXIDE) 28 MMOL/L (24-34); GFR AFRICAN AMERICAN 4 ML/MIN (>=60); GFR NON AFRICAN AMERICAN 4 ML/MIN (>=60); GLUCOSE, SERUM 408 MG/DL (60-99); POTASSIUM, SERUM 3.7 MMOL/L (3.5-5.3); SODIUM, SERUM 136 MMOL/L (135-148); TROPONIN I <0.02 NG/ML (<0.05)
[2017-02-09 03:00] LABS: CALCIUM, SERUM 8.7 MG/DL (8.5-10.4)
[~2017-02-09 04:36] MED LIST changes: +FERROUS SULF325 M1 PO; +LEVEMFLXPN SC; +NORCO1 TAB PO; +PEP20 PO; +PROTONIX PO; +REG5 PO
[2017-05-09] MEDS ORDERED: CARDCD360 PO (18:03)
[2017-05-09] MEDS ORDERED: PEP20 PO (18:03)
[2017-05-09] MEDS ORDERED: NOVOLOG SC (18:04)
[2017-05-09] MEDS ORDERED: LOP50 PO (18:05)
[2017-05-09] MEDS ORDERED: REG5 PO (18:05)
[2017-05-09] MEDS ORDERED: ZOFRAN4 PO (18:06)
[2017-05-09] MEDS ORDERED: ZOCOR40 PO (18:07)
[2017-05-09] MEDS ORDERED: RENAGEL800 PO (18:07)
[2017-05-09] MEDS ORDERED: LANTUS SC (18:08)
[2017-05-09] MEDS ORDERED: NORCO1 TA2 PO (18:08)
== END 2017-02-09 05:15 | disposition home or self-care (01) ==
LOC: ER 04:36
PROVIDERS: Nurse Practitioner
DX: I12.0 Hypertensive chronic kidney disease with stage 5 chronic kidney disease or end stage renal disease (principal); E11.22 Type 2 diabetes mellitus with diabetic chronic kidney disease; N18.6 End stage renal disease; D53.9 Nutritional anemia, unspecified; Z79.4 Long term (current) use of insulin; I48.91 Unspecified atrial fibrillation; Z88.1 Allergy status to other antibiotic agents; Z79.899 Other long term (current) drug therapy
CPT/HCPCS: 80048; 82962; 83735; 84484; 85025; 85610; 85730; 93005; 96374; 99285; A9270-GY; J0153